=== PATIENT | male | born 1975 | race African-American/Black ===

== ENCOUNTER 2019-10-18 19:59 | Inpatient (IN) | payer MEDICARE, SELFPAY ==
[2019-10-18 20:04] VITALS: BP 152/101; PULSE 112; RESP 18; TEMP 36.1; O2SAT 100
--- NOTE | 2019-10-18 20:13 | ED.GENADULT ---
HPI - General Adult General Chief complaint: Recheck/Abnormal Lab/Rx Stated complaint: High Blood sugar Time Seen by Provider: 10/18/19 20:12 Source: patient and family Mode of arrival: ambulatory Limitations: no limitations History of Present Illness HPI narrative: Patient is a 44-year-old male with no previous medical history who presents for evaluation of elevated blood glucose readings. Patient states over the past 2 to 4 weeks he has had an unintended 10 to 15 pound weight loss, polyuria, thirst. He states he has felt slightly more fatigued than normal. He denies any nausea, vomiting or abdominal pain. He states that he was telling her niece about some of his symptoms, and she had an at-home glucometer to check his glucose which was reading in the 500s. Patient states he has never been diagnosed with any medical conditions has never been diagnosed with diabetes in the past, but there is a strong family history of it. Patient does not have a primary care provider. Related Data Home Medications Medication Instructions Recorded Confirmed No Home Medications 10/18/19 10/18/19 Allergies Allergy/AdvReac Type Severity Reaction Status Date / Time No Known Allergies Allergy Verified 10/18/19 20:14 Review of Systems Review of Systems: Narrative: CONSTITUTIONAL: Denies fever, chills, or sweats. EYES: Denies visual changes ENT: Denies rhinorrhea, congestion, sore throat, or otalgia. CARDIOVASCULAR: Denies chest pain, palpitations, or edema. RESPIRATORY: Denies cough or dyspnea. GASTROINTESTINAL: Denies abdominal pain, nausea, vomiting, or diarrhea. GENITOURINARY: Denies dysuria or hematuria. Reports polyuria. SKIN: Denies rash or itching. MUSCULOSKELETAL: Denies back pain, joint pain, or myalgia. NEUROLOGIC: Denies headache, numbness, or weakness. [facility] Past Medical History Medical History (Updated 10/18/19 @ 21:15 by Marika Cyr MD) No pertinent past medical history Surgical History Surgical History (Updated 10/18/19 @ 20:19 by Marika Cyr MD) No pertinent past surgical history Social History Social History (Updated 10/18/19 @ 20:19 by Marika Cyr MD) Smoking status: Former smoker Tobacco type: cigarettes Alcohol intake: never Substance use: never Living arrangements: with family Gender identity (if verbalized by the patient): Male Exam Narrative: Exam Narrative: GENERAL: Awake, alert, conversant HEAD: Normocephalic, atraumatic. EYES: PERRLA and EOMI. ENT: Nares clear, no rhinorrhea or epistaxis. Mucous membranes moist. NECK: Supple. CHEST: No respiratory distress, breathing even and non labored HEART: Mildly tachycardic, rate 110s, sinus rhythm ABDOMEN:Non distended, non tender EXTREMITIES: Normal range of motion. No edema. SKIN: Warm, dry, no rash. NEURO:No focal deficits. Alert and oriented x3 Course Vital Signs Vital signs: Vital Signs Temperature 36.1 C L 10/18/19 20:04 Pulse Rate 112 H 10/18/19 20:04 Respiratory Rate 18 10/18/19 20:04 Blood Pressure 152/101 H 10/18/19 20:04 Pulse Oximetry 100 10/18/19 20:04 Temperature 36.1 C L 10/18/19 20:04 Pulse Rate 84 10/18/19 21:22 Respiratory Rate 14 10/18/19 21:22 Blood Pressure 165/110 H 10/18/19 21:22 Pulse Oximetry 98 10/18/19 21:22 Medical Decision Making MDM Narrative Medical decision making narrative: Patient is a 44-year-old male who presented for evaluation of hyperglycemia. At the time of assessment, we confirmed had a blood sugar reading greater than 500. Patient has many clinical symptoms consistent with diabetes, thus the patient was given 2 L of IV fluids, otherwise asymptomatic without any pain, nausea or vomiting. No infectious type symptoms. Laboratory results consistent with DKA. Patient with mild acidotic state. Anion gap of 19. Mild acute kidney injury. Beta hydroxybutyrate elevated. No severe electrolyte derangement. Patient blood sugar was less than 50
[2019-10-18 20:17] LABS: Glucose Point of Care > 500 (65-105)
[2019-10-18 20:33] LABS: Basophils Percent Auto 0.3 % (0.2-1.2); Eosinophils Absolute Auto 0.1 K/mm3 (0-0.3); Eosinophils Percent Auto 0.6 % (0-4.4); Hemoglobin 18.2 g/dL (14.0-18.0); Immature Granulocyte Absolute 0.04 K/mm3 (0.00-0.031); Immature Granulocyte Percent A 0.3 % (0-0.5); Lymphocytes Percent Auto 34.2 % (18.3-44.2); Mean Corpuscular HGB Conc 33.7 g/dl (32-36); Mean Corpuscular Hemoglobin 28.6 pg (26-34); Mean Corpuscular Volume 84.8 fl (80-100); Mean Platelet Volume 11.4 fl (7.4-10.4); Monocytes Absolute Auto 0.6 K/mm3 (0.1-0.6); Neutrophils Absolute Auto 7.5 K/mm3 (1.3-6.7); Neutrophils Percent Auto 59.6 % (45.5-73.1); Platelet Count Result 276 k/mm3 (150-375); Red Blood Count 6.37 M/mm3 (4.6-6.20); Red Cell Distribution Width 12.9 % (11.5-14.5); White Blood Count 12.6 K/mm3 (4.5-10.0)
[2019-10-18 20:40] LABS: Alveolar/Arterial O2 Gradient 20.1 mmHg; Base Excess ABG -4.1 mEq/l (+/-2.0); Carboxyhemoglobin 0.7 % THb (0-2.0); Device ROOM AIR; Fractional Inspired Oxygen 21 %; HCO3 ABG 20.9 mEq/l (22.0-26.0); Methemoglobin ABG 0.6 %THb (0-1.5); Modified Allen's Test Pass; Oxygen Content ABG 23.7 %vol (16.0-22.0); Oxygen Saturation ABG 95.9 % (95.0-100.0); Oxyhemoglobin 94.8 % THb (90.0-100.0); PCO2 ABG 38.2 mmHg (35.0-45.0); PO2 ABG 83.9 mmHg (80.0-100.0); Reduced Hemoglobin 3.9 %THb (0-5.0); Site Drawn LEFT RADIAL; Total Hemoglobin 17.8 g/dL (12.0-18.0); pH ABG 7.355 (7.350-7.450)
[2019-10-18] MEDS: SODIUM CHLORIDE 0.9% IV 1,000 ML 999 ML IV CONT ×2 (20:42)
[2019-10-18 20:49] LABS: Alanine Aminotransferase 25 U/L (4-50); Albumin Level 4.8 g/dL (3.5-5.1); Alkaline Phosphatase 119 U/L (38-126); Aspartate Amino Transferase 22 U/L (17-59); Beta-Hydroxybutyrate/Acetoacetate 2.48 mmol/L (0.02-0.27); Bilirubin,Total 0.7 mg/dL (0.2-1.3); Blood Urea Nitrogen 21 mg/dL (9-20); Calcium 9.5 mg/dL (8.4-10.2); Carbon Dioxide 21 mmol/L (22-30); Chloride 95 mmol/L (98-107); Estimated Glomerular Filt Rate > 60; Glucose 600 mg/dL (75-110); Magnesium 2.5 mg/dL (1.6-2.3); Phosphorus 5.7 mg/dL (2.5-4.5); Potassium 4.1 mmol/L (3.4-5.0); Sodium 135 mmol/L (137-145)
[2019-10-18 21:00] LABS: Glucose Point of Care 472 (65-105)
[2019-10-18] MEDS: INSULIN HUMAN REGULAR (*BKC) 100 UNITS/ML 10 UNITS IV PUSH (21:18)
[2019-10-18 21:22] VITALS: BP 165/110; PULSE 84; RESP 14; O2SAT 98
[2019-10-18 21:39] LABS: Add Urine Microscopic? YES; Appearance Urine Clear (Clear); Bilirubin Urine Negative (Negative); Blood Urine Negative (Negative); Color Urine Straw (Yellow); Glucose Urine UA 3+ mg/dL (Negative); Ketones Urine 1+ mg/dL (Negative); Leukocyte Esterase Ur Negative LEU/UL (Negative); Mucus Urine Rare /lpf; Nitrate Urine Negative (Negative); Protein Urine Negative (Negative); Specific Grav Ur 1.035 (1.001-1.035); Urobilinogen Urine Negative mg/dL (<2.0); WBC Urine 0-3 /hpf
[2019-10-18 22:01] VITALS: BP 158/90; PULSE 94; RESP 17; O2SAT 97
[2019-10-18 22:22] VITALS: PULSE 95
--- NOTE | 2019-10-18 22:22 | PC.NURSE ---
This patient, Ulisses Eli, was admitted to Intensive Care Unit-11. Patient/family oriented to hospital policies and general routines including ID bracelet, bed and alarms, visiting hours, pain management, procedures, bathroom and other care routines, personal items, smoking policy, room service/diet, and visiting hours. Valuables list has been completed. Information on how to activate the Rapid Response Team has been discussed. Patient/Family are encouraged to report perceived risks to care and to ask questions if they do not understand what they are told or what they should do.
[2019-10-18 22:27] VITALS: BP 180/112; PULSE 88; RESP 16; TEMP 36.8; O2SAT 99
[2019-10-18] MEDS: SODIUM CHLORIDE 0.9% IV 1,000 ML 150 ML IV CONT (22:30)
[2019-10-18] MEDS: INSULIN HUMAN REGULAR (*BKC) 100 UNITS in SODIUM CHLORIDE 0.9% IV 99 ML 6.2 UNITS IV CONT (22:35)
[2019-10-18 22:42] VITALS: BMI 32.6
--- NOTE | 2019-10-18 23:07 | PM.IMHP ---
H&P: HPI History of Present Illness Chief complaint: DKA Narrative: This is a 44 year old male with no previous medical history who presented to the hospital with a complaint of hyperglycemia. The patient has noticed over the past month that he has lost about 10 pounds and has also had increased thirst, increased urination, and increased hunger. Over the past few days he has had nausea, vomiting, and generalized abdominal discomfort. The patient's niece who is diabetic decided to check his blood sugar at home after he told her his symptoms. He was found to have a blood sugar in the 500s at home. He has no previous history of diabetes or elevated blood sugars. The patient was evaluated in the ER tonight and found to be in mild DKA with an elevated anion gap, hyperglycemic with positive serum ketones. No other complaints. Review of Systems Review of Systems: All systems reviewed & are unremarkable except as noted in HPI and below PMFSH Past Medical History Medical History No pertinent past medical history Surgical History Surgical History No pertinent past surgical history Family History Family History Mother Diabetes mellitus Father Heart disease Social History Social History Smoking packs per day: 1 Smoking cigarettes per day: 20.0 Years smoked: 20 Smoking pack-years: 20.00 Smoking status: Former smoker Tobacco type: cigarettes Alcohol intake: unknown Substance use: former Substance use type: marijuana Living arrangements: with family Gender identity (if verbalized by the patient): Male Spiritual care concerns: No Meds Home Medications and Allergies Home Medications Medication Instructions Recorded Confirmed Type No Home Medications 10/18/19 10/18/19 History Allergies Allergy/AdvReac Type Severity Reaction Status Date / Time No Known Allergies Allergy Verified 10/18/19 20:14 Vital Signs Vital Signs - 24 hr 10/18/19 20:04 10/18/19 21:22 10/18/19 22:01 Temperature 36.1 C L Pulse Rate 112 H 84 94 Respiratory Rate 18 14 17 Blood Pressure 152/101 H 165/110 H 158/90 H Pulse Oximetry 100 98 97 Exam Const: General: cooperative, healthy appearing, no acute distress, alert and awake Nutritional Appearance: well nourished Orientation/consciousness: patient oriented x3 HENMT: Head: normal to inspection General nose exam: Normal external nose present Face and sinus: normal facial exam Mouth: Yes Normal oral and palatal mucosa present and Yes oropharynx normal Eyes: Pupils: Equal, round and reactive pupils present EOM: EOMs intact bilaterally Neck: Neck: supple and no JVD Thyroid: thyroid normal Lymphatic: lymphadenopathy not noted Resp: Effort & Inspection: normal respiratory effort Auscultation: clear to auscultation bilaterally Cardio: Rate: regular rate Rhythm: regular rhythm Heart sounds: no murmurs GI: Inspection: normal to inspection Auscultation: normal bowel sounds Skin: General skin exam: normal color and no rashes or lesions noted Neuro: General: patient oriented x3 Cranial nerves: Yes CN's II-XII intact bilaterally and Yes Equal, round and reactive pupils present Speech: normal speech Motor exam (neuro): 5/5 motor strength present throughout Sensory Exam: normal sensation Extrem: General: normal to inspection and no edema Psych: Mental Status: mental status grossly normal Affect: normal affect H&P: Results Labs Labs: Short CBC 10/18/19 Range/Units 20:26 WBC 12.6 H (4.5-10.0) K/mm3 Hgb 18.2 H (14.0-18.0) g/dL Hct 54.0 H (42.0-52.0) % Plt Count 276 (150-375) k/mm3 BMP 10/18/19 20:26 Sodium 135 L Potassium 4.1 Chloride 95 L Carbon Dioxide 21 L BUN 21 H Creatinine 1.40 H
[2019-10-18 23:08] LABS: Glucose Point of Care 373 (65-105)
[2019-10-18] MEDS: hydrALAZINE HCL 20 MG/ML VIAL 10 MG IV PUSH (23:35)
[2019-10-18 23:45] LABS: Glucose Point of Care 384 (65-105)
[2019-10-19] VITALS (18 sets, daily range): BP systolic 128–163; BP diastolic 79–108; PULSE 72–126; RESP 13–23; TEMP 36.8–37; O2SAT 96–100
[2019-10-19 00:46] LABS: Glucose Point of Care 323 (65-105)
[2019-10-19 01:08] LABS: Blood Urea Nitrogen 18 mg/dL (9-20); Calcium 8.7 mg/dL (8.4-10.2); Carbon Dioxide 23 mmol/L (22-30); Chloride 104 mmol/L (98-107); Estimated CRCL calculation 114 ml/min; Estimated Glomerular Filt Rate > 60; Glucose 319 mg/dL (75-110); Potassium 4.1 mmol/L (3.4-5.0); Sodium 139 mmol/L (137-145)
[2019-10-19 01:10] LABS: Hemoglobin A1C > 14.0 % (<5.7)
[2019-10-19 01:48] LABS: Glucose Point of Care 293 (65-105)
[2019-10-19] MEDS: KCL 20 MEQ/D5/0.45% SOD CHL 1,000 ML 150 ML IV CONT (02:39)
[2019-10-19 02:45] LABS: Glucose Point of Care 241 (65-105)
[2019-10-19 04:08] LABS: Glucose Point of Care 213 (65-105)
[2019-10-19 04:55] LABS: Glucose Point of Care 221 (65-105)
[2019-10-19 06:08] LABS: Glucose Point of Care 175 (65-105)
[2019-10-19 06:09] LABS: Blood Urea Nitrogen 16 mg/dL (9-20); Calcium 8.6 mg/dL (8.4-10.2); Carbon Dioxide 24 mmol/L (22-30); Chloride 108 mmol/L (98-107); Estimated CRCL calculation 126 ml/min; Estimated Glomerular Filt Rate > 60; Glucose 208 mg/dL (75-110); Potassium 3.4 mmol/L (3.4-5.0); Sodium 140 mmol/L (137-145)
[2019-10-19 06:54] LABS: Glucose Point of Care 167 (65-105)
[2019-10-19 08:00] LABS: Hemoglobin A1C > 14.0 % (<5.7)
[2019-10-19] MEDS: INSULIN GLARGINE (*BKC) 100 UNITS/ML 30 UNITS SUB-Q (08:01)
[2019-10-19 08:07] LABS: Glucose Point of Care 141 (65-105)
[2019-10-19] MEDS: hydrALAZINE HCL 20 MG/ML VIAL 10 MG IV PUSH (08:07)
[2019-10-19] MEDS: INSULIN HUMAN REGULAR (*BKC) 100 UNITS in SODIUM CHLORIDE 0.9% IV 99 ML 6.5 UNITS IV CONT (08:40)
--- NOTE | 2019-10-19 08:55 | ECG_ITS ---
Measurements Intervals [place] Rate: 76 P: 54 TN: 169 QRS: 44 QRSD: 105 T: 260 QT: 380 QTc: 429 Interpretive Statements SINUS RHYTHM EARLY PRECORDIAL R/S TRANSITION LEFT VENTRICULAR HYPERTROPHY AND ST-T CHANGE T WAVE ABNORMALITY IN ANTEROLAT/INF LEADS- CONSIDER ISCHEMIA ABNORMAL ECG Electronically Signed On 10-19-2019 14:47:01 CDT by Sukhjinder Cheema D.O.
[2019-10-19 09:08] LABS: Glucose Point of Care 135 (65-105)
--- NOTE | 2019-10-19 09:19 | WPDCNINT ---
Assessment and Plan Assessment and plan (1) DKA (diabetic ketoacidoses): Qualifiers: Diabetes mellitus complication detail: without coma Diabetes mellitus type: type 2 Qualified Code(s): E11.10 - Type 2 diabetes mellitus with ketoacidosis without coma Code(s): E11.10 - Type 2 diabetes mellitus with ketoacidosis without coma Status: Acute Assessment and Plan: His anion gap has closed today in the morning. He will be transitioned to basal bolus insulin. His requirement for insulin was on the higher side and did require about 10 units of regular insulin per our. His weight is 118 kg as well. Will give him 30 units of insulin as Lantus and keep him on 8 units of prandial insulin in addition to moderate scale insulin sliding scale. Insulin drip and IV fluid will be stopped 2 hours after he did receive Lantus. He has been given breakfast as well. Recheck BMP 4-6 hours after insulin drip has been stopped. (2) Diabetes mellitus: Code(s): E11.9 - Type 2 diabetes mellitus without complications Status: Acute Assessment and Plan: He is being transitioned to basal bolus insulin. He will need diabetic teaching. Nutrition consult will be obtained. Check hemoglobin A1c and lipid profile in the a.m.. (3) Acute kidney injury: Code(s): N17.9 - Acute kidney failure, unspecified Status: Acute Assessment and Plan: Likely prerenal with dehydration. Creatinine was 1.4 yesterday which is down to 0.9 today. Monitor renal parameters and electrolytes. Strict intake output record and elevate. (4) Acute dehydration: Code(s): E86.0 - Dehydration Status: Acute Assessment and Plan: He was resuscitated with IV fluids. He seems euvolemic on clinical exam now. Will stop IV fluids. (5) Leukocytosis: Qualifiers: Leukocytosis type: unspecified Qualified Code(s): D72.829 - Elevated white blood cell count, unspecified Code(s): D72.829 - Elevated white blood cell count, unspecified Status: Acute Assessment and Plan: Likely as a result of DKA. No obvious source of infection. Hold off antibiotics for now. (6) Uncontrolled hypertension: Code(s): I10 - Essential (primary) hypertension Status: Acute Assessment and Plan: Continue to monitor his blood pressure closely. Currently on hydralazine as p.r.n.. May need to be started on on antihypertensive regimen if he continued to be hypertensive. Additional Plan Diet diabetic diet. GI prophylaxis not indicated DVT prophylaxis Subcu heparin He will be downgraded to floor status later today if he remains stable and repeat lab does not show reappearance of anion gap metabolic acidosis. [place] Consult Note Consult date: 10/19/19 Time Seen: 10:30 HPI: Ulisses Eli is a 44 year old male with no significant past medical history was brought in here yesterday to the emergency department with hyperglycemia. As per the patient he has been having polyuria polydipsia for the last few weeks. He has lost about 10 lb as well. He did mention to have some nausea and had few episode of vomiting as well. He had generalized abdominal discomfort as well. His mother is diabetic. His knees is diabetic as well check his blood sugars which have was found to be elevated. He was brought into the emergency department further care. Was found to mild DKA and was started on insulin drip and IV fluid. Anion gap closed in the morning and is being transitioned to basal bolus insulin. Review of Systems Review of Systems: Narrative: A comprehensive review of systems has been reviewed with the patient and most of the symptoms are negative except the one's mentioned above in HPI. [facility] Past Medical History Medical History No pertinent past medical history Surgical History Surgical History (Reviewed 10/18/19 @ 23:18 by Blane Ta
[2019-10-19 10:06] LABS: Glucose Point of Care 160 (65-105)
[2019-10-19] MEDS: HEPARIN SODIUM 5,000 UNITS/ML VIAL 5000 UNITS SUB-Q ×2 (10:25→20:19)
[2019-10-19 12:10] LABS: Glucose Point of Care 218 (65-105)
[2019-10-19] MEDS: INSULIN HUMAN REGULAR (*BKC) 100 UNITS/ML 8 UNITS SUB-Q (12:24)
[2019-10-19] MEDS: INSULIN ASPART (*BKC) 100 UNITS/ML SUB-Q ×2 (12:26→17:14)
[2019-10-19 14:10] LABS: Blood Urea Nitrogen 16 mg/dL (9-20); Calcium 8.2 mg/dL (8.4-10.2); Carbon Dioxide 23 mmol/L (22-30); Chloride 102 mmol/L (98-107); Estimated CRCL calculation 114 ml/min; Estimated Glomerular Filt Rate > 60; Glucose 340 mg/dL (75-110); Sodium 134 mmol/L (137-145)
[2019-10-19] MEDS: AMLODIPINE BESYLATE 5 MG TABLET PO (15:10)
--- NOTE | 2019-10-19 16:24 | PC.NURSE ---
This patient, Ulisses Eli, was received from ICU on 10/19/19 at 1740. Personal belongings list checked and signed. Patient/family oriented to unit policies and routines. Report received from TANIA Ortiz
--- NOTE | 2019-10-19 16:27 | PC.NURSE ---
Patient downgraded to med/surg. Bed 253 and report given to TANIA Jose. Patient traveled via wheelchair and ambulated back to bed in 253. All belongings with patient. Transferred at 1620 and handed patient off to TANIA Jose
[2019-10-19 17:01] LABS: Albumin Level 3.9 g/dL (3.5-5.1); Blood Urea Nitrogen 16 mg/dL (9-20); Calcium 8.5 mg/dL (8.4-10.2); Carbon Dioxide 23 mmol/L (22-30); Chloride 101 mmol/L (98-107); Estimated CRCL calculation 126 ml/min; Estimated Glomerular Filt Rate > 60; Glucose 416 mg/dL (75-110); Phosphorus 3.2 mg/dL (2.5-4.5); Potassium 4.2 mmol/L (3.4-5.0); Sodium 134 mmol/L (137-145)
[2019-10-19 17:03] LABS: Glucose Point of Care 388 (65-105)
[2019-10-19] MEDS: INSULIN ASPART (*BKC) 100 UNITS/ML 8 UNITS SUB-Q (17:14)
--- NOTE | 2019-10-19 17:48 | PM.IMPN ---
Progress Note: A&P Assessment and Plan (1) DKA (diabetic ketoacidoses): Qualifiers: Diabetes mellitus complication detail: without coma Diabetes mellitus type: type 2 Qualified Code(s): E11.10 - Type 2 diabetes mellitus with ketoacidosis without coma Code(s): E11.10 - Type 2 diabetes mellitus with ketoacidosis without coma Status: Acute Assessment and Plan: Acute DKA - New onset diabetes mellitus. Gap closed and CO2 up to 24 so transitioned to Lantus and NovoLog this a.m.. Hgba1c greater than 14.. Hypoglycemic protocol. (2) Acute kidney injury: Code(s): N17.9 - Acute kidney failure, unspecified Status: Acute Assessment and Plan: Likely secondary to acute dehydration. Continue IV fluid challenge. And repeat creatinine down to 1.1 this a.m. (3) Leukocytosis: Qualifiers: Leukocytosis type: unspecified Qualified Code(s): D72.829 - Elevated white blood cell count, unspecified Code(s): D72.829 - Elevated white blood cell count, unspecified Status: Acute Assessment and Plan: Likely seconadry to acute DKA. No obvious infection. Recheck a.m.. (4) Uncontrolled hypertension: Code(s): I10 - Essential (primary) hypertension Status: Acute Assessment and Plan: The patient has no previous history of HTN. Monitor blood pressure. PRN hydralazine w/ parameters. EKG reveals evidence of left ventricular hypertrophy Start amlodipine today and monitor Subjective Date/time seen: 10/19/19 17:48 Interval history: Date of visit 10/18. 44-year-old previously healthy black male admitted with hyperglycemia and mild diabetic ketoacidosis when he presented with elevated blood sugar and symptoms of polyuria and polydipsia. Placed on insulin drip overnight and switch to Lantus and NovoLog this a.m.. Feeling better and hungry. No obvious precipitating factors. Mother has diabetes Exam Narrative: Exam Narrative: Blood pressure 150/94 pulse is 82 afebrile Pupils equal reactive light sclera anicteric Lungs clear CV regular rate rhythm no murmurs Abdomen is soft nontender no masses Extremities without edema distal pulses Neuro alert pleasant cooperative no focal deficits Objective Data Vital Signs Vital Signs: Vital Signs - 24 hr 10/18/19 20:04 10/18/19 21:22 10/18/19 22:01 Temperature 36.1 C L Pulse Rate 112 H 84 94 Respiratory Rate 18 14 17 Blood Pressure 152/101 H 165/110 H 158/90 H Pulse Oximetry 100 98 97 10/18/19 22:22 10/18/19 22:27 10/19/19 00:00 Temperature 36.8 C Pulse Rate 95 88 94 Respiratory Rate 16 Blood Pressure 180/112 H Pulse Oximetry 99 10/19/19 00:01 10/19/19 01:01 10/19/19 02:00 Temperature 36.8 C Pulse Rate 95 96 87 Respiratory Rate 23 H 22 H Blood Pressure 163/102 H 149/99 H Pulse Oximetry 10/19/19 02:01 10/19/19 02:43 10/19/19 03:01 Temperature Pulse Rate 87 94 92 Respiratory Rate 21 H 20 18 Blood Pressure 160/108 H 159/98 H 144/97 H Pulse Oximetry 10/19/19 03:51 10/19/19 04:00 10/19/19 06:00 Temperature 36.9 C Pulse Rate 84 126 H 90 Respiratory Rate 18 Blood Pressure 154/92 H Pulse Oximetry 98 10/19/19 06:01 10/19/19 08:00 10/19/19 10:00 Temperature 37.0 C Pulse Rate 90 76 93 Respiratory Rate 22 H 19 19 Blood Pressure 153/108 H 161/100 H 155/95 H Pulse Oximetry 99 96 98 10/19/19 11:05 10/19/19 12:00 10/19/19 14:00 Temperature Pulse Rate 84 80 87 Respiratory Rate 21 H 18 22 H Blood Pressure 145/92 H 146/101 H Pulse Oximetry 98 98 100 10/19/19 16:00 Temperature Pulse Rate 82 Respiratory Rate 13 Blood Pressure 150/94 H Pulse Oximetry 96 Intake/Output Intake/Output: Intake & Output 10/16/19 10/17/19 10/18/19 10/19/19 23:59 23:59 23:59 23:59 Intake Total 1999 3143.0 Output Total 325 550 Balance 1675 2593.0 Meds/Results Medications: Active Medications Generic Name Dose Route Start Last Admin Trade Name
[2019-10-19] MEDS: INSULIN ASPART (*BKC) 100 UNITS/ML 10 UNITS SUB-Q ×2 (17:58→20:41)
[2019-10-19 20:24] LABS: Glucose Point of Care 423 (65-105)
[2019-10-19 20:24] LABS: Glucose Point of Care 442 (65-105)
[2019-10-19] MEDS: INSULIN GLARGINE (*BKC) 100 UNITS/ML 15 UNITS SUB-Q (20:46)
[2019-10-20 00:06] LABS: Glucose Point of Care 243 (65-105)
[2019-10-20 06:25] LABS: Basophils Percent Auto 0.3 % (0.2-1.2); Eosinophils Absolute Auto 0.1 K/mm3 (0-0.3); Eosinophils Percent Auto 1.2 % (0-4.4); Hematocrit 48.6 % (42.0-52.0); Hemoglobin 16.3 g/dL (14.0-18.0); Immature Granulocyte Absolute 0.03 K/mm3 (0.00-0.031); Immature Granulocyte Percent A 0.3 % (0-0.5); Lymphocytes Absolute Auto 3.81 K/mm3 (0.9-3.2); Lymphocytes Percent Auto 42.7 % (18.3-44.2); Mean Corpuscular HGB Conc 33.5 g/dl (32-36); Mean Corpuscular Hemoglobin 28.5 pg (26-34); Mean Platelet Volume 10.9 fl (7.4-10.4); Monocytes Absolute Auto 0.5 K/mm3 (0.1-0.6); Monocytes Percent Auto 5.2 % (2.6-8.5); Neutrophils Absolute Auto 4.5 K/mm3 (1.3-6.7); Neutrophils Percent Auto 50.3 % (45.5-73.1); Platelet Count Result 207 k/mm3 (150-375); Red Blood Count 5.72 M/mm3 (4.6-6.20); Red Cell Distribution Width 12.8 % (11.5-14.5); White Blood Count 8.9 K/mm3 (4.5-10.0)
[2019-10-20 06:36] LABS: Albumin Level 3.7 g/dL (3.5-5.1); Blood Urea Nitrogen 14 mg/dL (9-20); Calcium 8.6 mg/dL (8.4-10.2); Carbon Dioxide 26 mmol/L (22-30); Chloride 103 mmol/L (98-107); Cholesterol 199 mg/dL (0-200); Estimated CRCL calculation 115 ml/min; Estimated Glomerular Filt Rate > 60; Glucose 219 mg/dL (75-110); HDL Direct 29 mg/dL; Phosphorus 3.9 mg/dL (2.5-4.5); Potassium 3.6 mmol/L (3.4-5.0); Sodium 137 mmol/L (137-145); Triglycerides 232 mg/dL (<150)
[2019-10-20 06:45] VITALS: BP 127/78; PULSE 88; RESP 20; TEMP 36.6; O2SAT 97
[2019-10-20 06:46] LABS: LDL Cholesterol Direct 133 mg/dL
[2019-10-20] MEDS: HEPARIN SODIUM 5,000 UNITS/ML VIAL 5000 UNITS SUB-Q ×2 (08:07→20:19)
[2019-10-20] MEDS: AMLODIPINE BESYLATE 5 MG TABLET PO (08:08)
[2019-10-20 08:14] LABS: Glucose Point of Care 231 (65-105)
[2019-10-20] MEDS: INSULIN ASPART (*BKC) 100 UNITS/ML SUB-Q ×3 (08:14→17:30)
[2019-10-20] MEDS: INSULIN ASPART (*BKC) 100 UNITS/ML 8 UNITS SUB-Q ×2 (08:15→11:58)
[2019-10-20] MEDS: INSULIN GLARGINE (*BKC) 100 UNITS/ML 45 UNITS SUB-Q (08:24)
[2019-10-20 11:57] LABS: Glucose Point of Care 296 (65-105)
[2019-10-20 14:00] VITALS: BP 158/89; PULSE 87; RESP 16; TEMP 36; O2SAT 99
[2019-10-20 17:14] LABS: Glucose Point of Care 274 (65-105)
[2019-10-20] MEDS: INSULIN ASPART (*BKC) 100 UNITS/ML 10 UNITS SUB-Q (17:31)
--- NOTE | 2019-10-20 18:16 | PM.IMPN ---
Progress Note: A&P Assessment and Plan (1) DKA (diabetic ketoacidoses): Qualifiers: Diabetes mellitus complication detail: without coma Diabetes mellitus type: type 2 Qualified Code(s): E11.10 - Type 2 diabetes mellitus with ketoacidosis without coma Code(s): E11.10 - Type 2 diabetes mellitus with ketoacidosis without coma Status: Acute Assessment and Plan: Acute DKA - New onset diabetes mellitus. Gap closed and CO2 up to 24 so transitioned to Lantus and NovoLog am 10/18. Hgba1c greater than 14.. Increaseing lantus and novolog ac to control BS (2) Acute kidney injury: Code(s): N17.9 - Acute kidney failure, unspecified Status: Acute Assessment and Plan: Likely secondary to acute dehydration. . And repeat creatinine down to 1.0 this a.m. (3) Leukocytosis: Qualifiers: Leukocytosis type: unspecified Qualified Code(s): D72.829 - Elevated white blood cell count, unspecified Code(s): D72.829 - Elevated white blood cell count, unspecified Status: Acute Assessment and Plan: Likely seconadry to acute DKA. No obvious infection. 8.9 this am so probable stress related.. (4) Uncontrolled hypertension: Code(s): I10 - Essential (primary) hypertension Status: Acute Assessment and Plan: The patient has no previous history of HTN. PRN hydralazine w/ parameters. EKG reveals evidence of left ventricular hypertrophy Started amlodipine 5 10/18 and will increase to 10 qd Subjective Date/time seen: 10/20/19 18:16 Interval history: Date of visit 10/19. 44-year-old previously healthy black male admitted with hyperglycemia and mild diabetic ketoacidosis when he presented with elevated blood sugar and symptoms of polyuria and polydipsia. Placed on insulin drip overnight and switch to Lantus and NovoLog a.m.10/18.. Feeling better. No obvious precipitating factors. Mother had diabetes Exam Narrative: Exam Narrative: Blood pressure 156/86 pulse is 76 afebrile Pupils equal reactive light sclera anicteric Lungs clear CV regular rate rhythm no murmurs Abdomen is soft nontender no masses Extremities without edema distal pulses Neuro alert pleasant cooperative no focal deficits Objective Data Vital Signs Vital Signs: Vital Signs - 24 hr 10/19/19 20:00 10/20/19 06:45 10/20/19 14:00 Temperature 36.8 C 36.6 C 36.0 C L Pulse Rate 81 88 87 Respiratory Rate 18 20 16 Blood Pressure 128/79 127/78 158/89 H Pulse Oximetry 99 97 99 Intake/Output Intake/Output: Intake & Output 10/17/19 10/18/19 10/19/19 10/20/19 23:59 23:59 23:59 23:59 Intake Total 1999 3143.0 1720 Output Total 325 550 Balance 1675 2593.0 1720 Meds/Results Medications: Active Medications Generic Name Dose Route Start Last Admin Trade Name Freq PRN Reason Stop Dose Admin Acetaminophen 650 mg 10/18/19 21:31 Tylenol Tablet PO Q4H PRN Mild Pain (1-3) or Fever Dextrose 12.5 gm 10/19/19 07:24 Dextrose 50% Syringe IV PUSH PRN PRN Hypoglycemia Protocol Glucagon 1 mg 10/19/19 07:24 Glucagon For Inj IM PRN PRN Hypoglycemia Protocol Glucose 15 gm 10/19/19 07:24 Glutose 15 PO PRN PRN Hypoglycemia Protocol Heparin Sodium (Porcine) 5,000 units 10/19/19 09:00 10/20/19 08:07 Heparin Sodium SUB-Q 5,000 units Q12HR LEROY Administration Dextrose 1,000 mls @ 100 mls/hr 10/19/19 07:24 Dextrose 5% 1,000 Ml IVPB PRN PRN Hypoglycemia Protocol Insulin Aspart 3 - 6 units 10/19/19 08:00 10/20/19 17:30 Novolog SUB-Q 4 units TIDWM LEROY Administration Protocol Insulin Aspart 10 units 10/20/19 17:00 10/20/19 17:31 Novolog SUB-Q 10 units TIDWM LEROY Administration Insulin Glargine 45 units 10/20/19 09:00 10/20/19 08:24 Lantus SUB-Q 45 units DAILY LEROY Administration Labs Labs: Laboratory Results - last 24 hr 10/19/19 10/19/19
[2019-10-20 21:11] LABS: Glucose Point of Care 294 (65-105)
[2019-10-20 21:55] VITALS: BP 161/85; PULSE 80; RESP 12; TEMP 36.8; O2SAT 99
[2019-10-21 06:00] VITALS: BP 142/82; PULSE 67; RESP 12; TEMP 36.6; O2SAT 99
[2019-10-21 08:02] LABS: Glucose Point of Care 229 (65-105)
[2019-10-21] MEDS: INSULIN ASPART (*BKC) 100 UNITS/ML SUB-Q ×2 (08:03→11:41)
[2019-10-21] MEDS: INSULIN ASPART (*BKC) 100 UNITS/ML 10 UNITS SUB-Q ×2 (08:04→11:40)
[2019-10-21] MEDS: INSULIN GLARGINE (*BKC) 100 UNITS/ML 45 UNITS SUB-Q (08:04)
[2019-10-21] MEDS: HEPARIN SODIUM 5,000 UNITS/ML VIAL 5000 UNITS SUB-Q (08:05)
[2019-10-21] MEDS: AMLODIPINE BESYLATE 5 MG TABLET 10 MG PO (08:05)
[2019-10-21 11:40] LABS: Glucose Point of Care 269 (65-105)
--- NOTE | 2019-10-21 12:00 | PC.NURSE ---
Patient was not able to see a perioperative educator due to them not being here on the weekend and being on vacation. The is aware and has told the patient to follow up with a primary Dr. I gave the patient handouts and packages and went into extreme detail on how to check his blood sugar and administer insulin. The patient has practiced accuchecks and self-administering insulin. The patient has no questions at this time and the DrChris feels comfortable with discharge. The patient has the phone number for a primary care physician and diabetic management.
[2019-10-21 14:00] VITALS: BP 159/92; PULSE 93; RESP 16; TEMP 36.4; O2SAT 99
--- NOTE | 2019-10-24 10:01 | PCCDE ---
Consult received 10/18 for diabetes education r/t admit with DKA/new onset DM however pt was discharged 10/20 before consult was completed. Attempted to contact pt this am but no answer; left voice mail.
--- NOTE | 2019-10-25 07:42 | PM.DS ---
DS: Admitting Diagnosis Admitting Diagnosis Admitting Diagnosis: Type 2 diabetes mellitus with ketoacidosis without coma DS: Discharge Diagnosis Discharge Diagnosis (1) DKA (diabetic ketoacidoses): Qualifiers: Diabetes mellitus complication detail: without coma Diabetes mellitus type: type 2 Qualified Code(s): E11.10 - Type 2 diabetes mellitus with ketoacidosis without coma Code(s): E11.10 - Type 2 diabetes mellitus with ketoacidosis without coma Status: Acute Assessment and Plan: Acute DKA - New onset diabetes mellitus. Gap closed and CO2 up to 24 and transitioned to Lantus and NovoLog am 10/18. Hgba1c greater than 14.. Increaseing lantus(45 U at discharge) and novolog ac(10 U at discharge) to control BS (2) Acute kidney injury: Code(s): N17.9 - Acute kidney failure, unspecified Status: Acute Assessment and Plan: Likely secondary to acute dehydration. . And repeat creatinine down to 1.0 (3) Leukocytosis: Qualifiers: Leukocytosis type: unspecified Qualified Code(s): D72.829 - Elevated white blood cell count, unspecified Code(s): D72.829 - Elevated white blood cell count, unspecified Status: Acute Assessment and Plan: Likely seconadry to acute DKA. No obvious infection. 8.9 on repeat, stress related.. (4) Uncontrolled hypertension: Code(s): I10 - Essential (primary) hypertension Status: Acute Assessment and Plan: The patient has no previous history of HTN. PRN hydralazine w/ parameters. EKG reveals evidence of left ventricular hypertrophy Started amlodipine 5 10/18 and will increase to 10 qd before d/c DS: Summary Hospital Course Hospital Course: 47-year-old black male admitted with new onset diagnosis diabetes and diabetic ketoacidosis. Treated with IV insulin and fluid resuscitation with normalization of acid-base status and blood sugar. Edge we increase Lantus to 45 units daily 10 units and 10 units of not along AC. Amlodipine 10 mg daily added for hypertension. Will return for outpatient diabetic Education Time Spent with Patient Time attestation: Total time spent providing and/or coordinating discharge services:35 minutes Exam Narrative: Exam Narrative: condition on discharge bp 150/92 p92 sat 98% afebrile lung clear cv rrr abd soft nontender extre without edema Discharge Plan Discharge Attending physician on discharge: Kamran Ricks Consulting providers: Iggy Gongora ; Raven Sauceda ; Sukhjinder Cheema Discharging Clinician: Kamran Ricks Patient Disposition: Home, Self-Care Activity: as tolerated Diet: diabetic and low sodium Patient Instructions: Antibiotic Form, Advance Directives (DC), Diabetic Ketoacidosis (GEN), Type 2 Diabetes in Adults: New Diagnosis (DC), Hypertension and Diabetes (DC), What to Do if Your Blood Sugar is Low (DC), How to Check your Blood Sugar (DC) Stand Alone Forms: General Discharge Information Follow-up/Referrals: Iggy Gongora MD [Physician] - 3 Weeks Discharge Medications: New amlodipine [Norvasc] 5 mg Tablet 10 mg PO QAM Qty: 30 RF: 0 Lantus Solostar U-100 Insulin 100 unit/mL (3 mL) insulin pen 45 unit SUB-Q DAILY Qty: 15 RF: 0 insulin aspart U-100 [Novolog Flexpen U-100 Insulin] 100 unit/mL (3 mL) insulin pen 10 unit SUB-Q TID Qty: 3 RF: 0 (DME) pen needle, diabetic [Lite Touch Insulin Pen [place]] 31 gauge x 5/16 needle See Rx Instructions .ROUTE .MEDSUPPLY Qty: 1,200 RF: 0 (DME) Pharmacist Choice Strip See Rx Instructions .ROUTE .MEDSUPPLY Qty: 50 RF: 8 (DME) blood-glucose meter Misc See Rx Instructions .ROUTE .MEDSUPPLY Qty: 1 RF: 0 (DME) lancets Misc See Rx Instructions .ROUTE .MEDSUPPLY Qty: 50 RF: 0 No Action No Home Medications RF: 0 Date of admission: 10/21/19 12:10 Primary Care Provider: PHYSICIAN,SENSOR SPECIALIST Admitting Provider: Blane Jameson Dis
== END 2019-10-21 15:15 | disposition home or self-care (01) | DRG 638 ==
LOC: ANHED 21:43 → ANHICU 21:46 → ANH2MED 10-19 16:42
PROVIDERS: Internal Medicine Critical Care Medicine; Admitting Provider Family Medicine; Emergency Provider Emergency Medicine; Visit Provider Internal Medicine
DX: E11.10 Type 2 diabetes mellitus with ketoacidosis without coma (principal); N17.9 Acute kidney failure, unspecified; E11.65 Type 2 diabetes mellitus with hyperglycemia; E86.0 Dehydration; D72.829 Elevated white blood cell count, unspecified; I10 Essential (primary) hypertension; Z87.891 Personal history of nicotine dependence
CPT/HCPCS: 36415; 36600; 80048; 80053; 80061; 80069; 81001; 82010; 82375; 82805; 82948; 83036; 83050; 83735; 84100; 84443; 85025; 93005; 96374; 99285; A9270; J0360; J1644; J1815; J3480; J7030